=== PATIENT | female | born 1960 | race Caucasian/White ===

== ENCOUNTER 2016-11-07 06:49 | Inpatient (IN) | payer MEDICARE ==
[~2016-11-07] VITALS: Ht 170.2 cm; Wt 61.8 kg
[~2016-11-07 06:49] MED LIST: LORA2TAB99 PO; OXYC1TAB9 PO; ZOLP10TA PO
[2016-11-07] MEDS ORDERED: SODIUM CHLORIDE FLUSH 10ML SYR IVF ONE (07:00)
[2016-11-07] MEDS ORDERED: MELO-190 PO (07:27)
[2016-11-07] MEDS ORDERED: ESTR0.6246 PO (07:27)
[2016-11-07] MEDS ORDERED: PLEASE ENTER ALLERGIES MC SCH ×2 (07:30)
[2016-11-07] MEDS ORDERED: PANTOPRAZOLE 40 MG IV IVPush ONE (07:30)
[2016-11-07] MEDS ORDERED: PANTOPRAZOLE 40 MG IV ONE (07:32)
[2016-11-07 07:37] LABS: ABG COLLECTION SITE RIGHT BRACHIAL
[2016-11-07 07:47] LABS: ASPARTATE AMINO TRANSFERASE 15 U/L (15-37); BLOOD UREA NITROGEN 13 mg/dL (7-18)
[2016-11-07 07:51] LABS: ACETAMINOPHEN < 2 mcg/mL (10-30)
[2016-11-07 08:05] LABS: HEMOGLOBIN 15.4 g/dL (11.7-16.4)
[2016-11-07 08:33] LABS: DAU SCREEN DISCLAIMER
[2016-11-07] MEDS ORDERED: ONDANSETRON 2MG/ML, 2ML IVPush ONE (09:30)
[2016-11-07 10:29] VITALS: BP 163/83
[2016-11-07] MEDS ORDERED: LORazepam 2 MG/ML, 1ML IVPush PRN (11:00)
[2016-11-07] MEDS ORDERED: OXYcodone/APAP 5/325MG TABLET PO PRN (11:00)
[2016-11-07] MEDS ORDERED: HYDROmorphone 2 MG/ML, 1ML IV PRN (11:00)
[2016-11-07] MEDS ORDERED: PROMETHAZINE 25 MG/ML, 1ML IM PRN (11:00)
[2016-11-07] MEDS ORDERED: NICOTINE 21 MG/24 HR PATCH.TD24 TD SCH (11:00)
[2016-11-07] MEDS: POTASSIUM CHLORIDE 10 MEQ in SODIUM CHLORIDE 0.9% 1,000 ML IV SCH ×2 (11:48→23:18)
[2016-11-07 14:01] LABS: HEMOGLOBIN 14.4 g/dL (11.7-16.4)
[2016-11-07 14:50] VITALS: BP 147/88
[2016-11-07 19:48] VITALS: BP 139/82
[2016-11-07] MEDS: PANTOPRAZOLE 40 MG IV IVP SCH (20:08)
[2016-11-07] MEDS: ONDANSETRON 2MG/ML, 2ML IVP PRN (20:08)
[2016-11-08 03:31] VITALS: BP 167/93
[2016-11-08 05:49] LABS: HEMOGLOBIN 14.2 g/dL (11.7-16.4)
[2016-11-08 06:09] LABS: BLOOD UREA NITROGEN 7 mg/dL (7-18)
[2016-11-08] MEDS: ONDANSETRON 2MG/ML, 2ML IVP PRN (06:32)
[2016-11-08 06:48] VITALS: BP 162/97
[2016-11-08] MEDS: PANTOPRAZOLE 40 MG IV IVP SCH (08:41)
[2016-11-08] MEDS ORDERED: POTASSIUM CHLORIDE 20 MEQ TAB.ER.PRT PO ONE (09:00)
[2016-11-08] MEDS ORDERED: PNEUMOCOCCAL 23 VACCINE IM-VACC ONE (09:00)
== END 2016-11-08 10:25 | disposition home or self-care (01) | DRG 917 ==
LOC: ED 08:14 → EDIP 09:25 → 4WST 10:22
PROVIDERS: ADMIT Internal Medicine; ATTEND Internal Medicine
PROC: 0T9B70Z Drainage of Bladder with Drainage Device, Via Natural or Artificial Opening (ICD-10-PCS; principal; 2016-11-07)
DX: T40.2X1A Poisoning by other opioids, accidental (unintentional), initial encounter (principal); G92 Toxic encephalopathy; M79.7 Fibromyalgia; F43.10 Post-traumatic stress disorder, unspecified; Z62.810 Personal history of physical and sexual abuse in childhood; F17.210 Nicotine dependence, cigarettes, uncomplicated; Z88.5 Allergy status to narcotic agent
CPT/HCPCS: 36415; 36600; 70450; 71010; 80048; 80053; 80307; 80329; 81003; 82140; 82803; 83605; 85014; 85018; 85025; 85610; 85730; 90732; 93005; 96374; 96375; J2405; J3480; C9113; G0480; J2060; J7030

== ENCOUNTER 2017-03-27 16:42 | Emergency (ER) | payer MEDICARE, MEDICAID ==
[~2017-03-27] VITALS: Ht 167.6 cm; Wt 63.2 kg
[~2017-03-27 16:42] MED LIST changes: +ESTR0.6246 PO; +MELO7.5T31 PO
[2017-03-27] MEDS ORDERED: INDOMETHACIN 50 MG CAPSULE ONE (17:43)
[2017-03-27 17:47] VITALS: BP 137/89
[2017-03-27] MEDS ORDERED: INDOMETHACIN 50 MG CAPSULE PO ONE (18:00)
== END 2017-03-27 18:39 | disposition home or self-care (01) ==
LOC: ED 18:30
DX: M79.89 Other specified soft tissue disorders (principal); M25.531 Pain in right wrist; F17.200 Nicotine dependence, unspecified, uncomplicated; F43.10 Post-traumatic stress disorder, unspecified; M79.7 Fibromyalgia; L40.9 Psoriasis, unspecified; X58.XXXA Exposure to other specified factors, initial encounter; Y93.89 Activity, other specified; Y92.098 Other place in other non-institutional residence as the place of occurrence of the external cause; Y99.8 Other external cause status
CPT/HCPCS: 99284

== ENCOUNTER 2017-05-22 16:43 | Emergency (ER) | payer MEDICARE, MEDICAID ==
[~2017-05-22] VITALS: Ht 170.2 cm; Wt 64.0 kg
[2017-05-22 16:47] VITALS: BP 140/96
[2017-05-23] MEDS ORDERED: ALPR1TAB2 PO (18:32)
== END 2017-05-22 19:52 | disposition home or self-care (01) ==
LOC: ED 17:31
DX: S32.512A Fracture of superior rim of left pubis, initial encounter for closed fracture (principal); F43.10 Post-traumatic stress disorder, unspecified; Z90.710 Acquired absence of both cervix and uterus; W18.39XA Other fall on same level, initial encounter; Y93.89 Activity, other specified; Y92.098 Other place in other non-institutional residence as the place of occurrence of the external cause; Y99.8 Other external cause status
CPT/HCPCS: 99284

== ENCOUNTER 2017-05-23 17:36 | Inpatient (IN) | payer MEDICARE, MEDICAID ==
[~2017-05-23] VITALS: Ht 167.6 cm; Wt 62.7 kg
[2017-05-23] MEDS ORDERED: KETOROLAC 30 MG/1 ML ONE (17:56)
[2017-05-23] MEDS ORDERED: SODIUM CHLORIDE 0.9% 1,000ML IVBOLUS ONE (18:00)
[2017-05-23 18:10] LABS: HEMATOCRIT 37.9 % (34.6-47.8); HEMOGLOBIN 12.6 g/dL (11.7-16.4); WHITE BLOOD COUNT 8.3 x10^3/uL (3.4-10)
[2017-05-23] MEDS ORDERED: KETOROLAC 30 MG/1 ML IVPush ONE (18:30)
[2017-05-23] MEDS ORDERED: ALPR1TAB2 PO (18:32)
[2017-05-23 18:51] LABS: ASPARTATE AMINO TRANSFERASE 21 U/L (15-37); BLOOD UREA NITROGEN 12 mg/dL (7-18)
[2017-05-23 18:54] LABS: ACETAMINOPHEN < 2 mcg/mL (10-30)
[2017-05-23] MEDS ORDERED: ONDANSETRON 2MG/ML, 2ML IVPush PRN (19:30)
[2017-05-23] MEDS ORDERED: HALOPERIDOL 5 MG/ML IVPush PRN (19:30)
[2017-05-23] MEDS ORDERED: hydrALAzine 20 MG/ML, 1ML IVPush PRN (19:30)
[2017-05-23] MEDS ORDERED: ENOXAPARIN 40 MG/0.4 ML ONE (19:44)
[2017-05-23] MEDS: ENOXAPARIN 40 MG/0.4 ML SQ SCH (19:55)
[2017-05-23 20:41] VITALS: BP 130/77
[2017-05-23] MEDS: SODIUM CHLORIDE 0.9% 1,000 ML IV SCH (21:22)
[2017-05-24 01:23] VITALS: BP 128/76
[2017-05-24 05:59] LABS: HEMATOCRIT 34.7 % (34.6-47.8); HEMOGLOBIN 11.9 g/dL (11.7-16.4); WHITE BLOOD COUNT 6.4 x10^3/uL (3.4-10)
[2017-05-24 06:08] LABS: BLOOD UREA NITROGEN 9 mg/dL (7-18)
[2017-05-24] MEDS: SODIUM CHLORIDE 0.9% 1,000 ML IV SCH ×3 (06:33→19:38)
[2017-05-24 08:04] VITALS: BP 119/70
[2017-05-24] MEDS: PANTOPRAZOLE 40 MG IV IVPush SCH (09:25)
[2017-05-24] MEDS ORDERED: HYDROmorphone 1 MG/ML, 1ML ONE ×2 (09:41→20:11)
[2017-05-24] MEDS: HYDROmorphone 2 MG/ML, 1ML IVPush PRN ×2 (09:44→20:14)
[2017-05-24 09:54] LABS: DAU SCREEN DISCLAIMER
[2017-05-24 13:58] VITALS: BP 99/56
[2017-05-24 19:07] VITALS: BP 123/79
[2017-05-24] MEDS: ENOXAPARIN 40 MG/0.4 ML SQ SCH (19:43)
[2017-05-25 01:56] VITALS: BP 144/92
[2017-05-25] MEDS: SODIUM CHLORIDE 0.9% 1,000 ML IV SCH ×3 (01:57→19:10)
[2017-05-25 05:45] LABS: BLOOD UREA NITROGEN 8 mg/dL (7-18)
[2017-05-25 07:58] VITALS: BP 144/88
[2017-05-25] MEDS ORDERED: LORazepam 2 MG/ML, 1ML IVPush ONE (08:00)
[2017-05-25] MEDS ORDERED: FENTANYL PF 100 MCG/2ML IVPush PRN (08:30)
[2017-05-25] MEDS ORDERED: LORazepam 2 MG/ML, 1ML IVPush PRN (08:30)
[2017-05-25] MEDS: ZIPRASIDONE 20 MG INJ IM PRN (11:12)
[2017-05-25] MEDS: PANTOPRAZOLE 40 MG IV IVPush SCH (11:41)
[2017-05-25 13:19] VITALS: BP 142/87
[2017-05-25] MEDS: ENOXAPARIN 40 MG/0.4 ML SQ SCH (19:48)
[2017-05-25 20:47] VITALS: BP 130/76
[2017-05-25] MEDS: LORazepam 2 MG/ML, 1ML IVPush SCH (21:32)
[2017-05-26] MEDS: ZIPRASIDONE 20 MG INJ IM PRN (00:50)
[2017-05-26 02:55] VITALS: BP 141/88
[2017-05-26] MEDS: SODIUM CHLORIDE 0.9% 1,000 ML IV SCH ×4 (03:53→21:32)
[2017-05-26 08:07] VITALS: BP 150/90
[2017-05-26] MEDS: PANTOPRAZOLE 40 MG IV IVPush SCH (08:27)
[2017-05-26] MEDS: LORazepam 2 MG/ML, 1ML IVPush SCH (09:00)
[2017-05-26] MEDS: LORazepam 1MG TABLET PO SCH ×2 (11:18→21:30)
[2017-05-26] MEDS: QUETIAPINE 25MG TABLET PO SCH ×2 (12:21→21:30)
[2017-05-26 13:36] VITALS: BP 114/75
[2017-05-26 19:10] VITALS: BP 123/74
[2017-05-26] MEDS: ENOXAPARIN 40 MG/0.4 ML SQ SCH (19:53)
[2017-05-26] MEDS: HYDROcodone/APAP 5/325 TABLET PO PRN (19:53)
[2017-05-26] MEDS ORDERED: LORazepam 1MG TABLET PO SCH (21:00)
[2017-05-27 00:43] VITALS: BP 127/84
[2017-05-27] MEDS: HYDROcodone/APAP 5/325 TABLET PO PRN ×3 (00:57→13:19)
[2017-05-27] MEDS: SODIUM CHLORIDE 0.9% 1,000 ML IV SCH ×2 (04:15→09:00)
[2017-05-27 08:45] VITALS: BP 125/83
[2017-05-27] MEDS: LORazepam 1MG TABLET PO SCH (08:55)
[2017-05-27] MEDS: QUETIAPINE 25MG TABLET PO SCH (08:55)
[2017-05-27] MEDS: PANTOPRAZOLE 40 MG IV IVPush SCH (08:55)
[2017-05-27] MEDS ORDERED: LORA-446 PO (09:29)
[2017-05-27] MEDS ORDERED: QUET25TA PO (09:29)
[2017-05-27] MEDS ORDERED: HYDR-3240 PO (09:29)
[2017-05-27 14:30] VITALS: BP 144/89
== END 2017-05-27 16:21 | DRG 896 ==
LOC: ED 17:58 → EDIP 19:06 → 3NE 20:00
PROVIDERS: ADMIT Hospitalist; ATTEND Hospitalist
PROC: 0T9B70Z Drainage of Bladder with Drainage Device, Via Natural or Artificial Opening (ICD-10-PCS; principal; 2017-05-24)
DX: F13.239 Sedative, hypnotic or anxiolytic dependence with withdrawal, unspecified (principal); G93.41 Metabolic encephalopathy; E44.0 Moderate protein-calorie malnutrition; K50.90 Crohn's disease, unspecified, without complications; E87.1 Hypo-osmolality and hyponatremia; F39 Unspecified mood [affective] disorder; Z78.1 Physical restraint status; M79.7 Fibromyalgia; K59.00 Constipation, unspecified; F43.10 Post-traumatic stress disorder, unspecified; F17.200 Nicotine dependence, unspecified, uncomplicated; E86.0 Dehydration; G89.29 Other chronic pain; Z85.850 Personal history of malignant neoplasm of thyroid; Z91.81 History of falling; Z87.81 Personal history of (healed) traumatic fracture; Z79.899 Other long term (current) drug therapy; Z79.1 Long term (current) use of non-steroidal anti-inflammatories (NSAID); Z88.5 Allergy status to narcotic agent; Z68.22 Body mass index [BMI] 22.0-22.9, adult
CPT/HCPCS: 36415; 70450; 71010; 74000; 80048; 80053; 80307; 80329; 81003; 82140; 82607; 83735; 84443; 85025; 93005; 96360; 96372; J1170; J1650; J1885; J3010; J3486; C9113; G0479; G0480; J2060; J7030

== ENCOUNTER 2018-08-21 15:58 | Emergency (ER) | payer MEDICARE, MEDICAID ==
[~2018-08-21] VITALS: Ht 167.6 cm; Wt 62.0 kg
[~2018-08-21 15:58] MED LIST changes: +ALPR-475 PO; +ALPR1TAB2 PO; +AMIT10TA PO; +AMIT50TA PO; +BETA15CR5 TP; +DULO20CA17 PO; +DULO30CA2 PO; +HYDR-3240 PO; +LORA-446 PO; +NICO-486 TD; +OMEP40CA6 PO; +OXYC-432 PO; -OXYC1TAB9 PO; +QUET25TA PO
[2018-08-21 16:29] VITALS: BP 120/81
[2018-08-21] MEDS ORDERED: HYDROcodone/APAP 5/325 TABLET PO ONE (17:00)
--- NOTE | 2018-08-21 17:29 | NUR ---
Patient/Caregiver given discharge instructions and they have confirmed that they understand the instructions. Patient ambulatory with steady gait. PT LEFT WITH ALL PERSONAL BELONGINGS.
== END 2018-08-21 17:31 | disposition home or self-care (01) ==
LOC: ED 16:45
DX: S20.02XA Contusion of left breast, initial encounter (principal); F43.10 Post-traumatic stress disorder, unspecified; Z90.710 Acquired absence of both cervix and uterus; Z85.850 Personal history of malignant neoplasm of thyroid; W01.0XXA Fall on same level from slipping, tripping and stumbling without subsequent striking against object, initial encounter; Y93.89 Activity, other specified; Y92.009 Unspecified place in unspecified non-institutional (private) residence as the place of occurrence of the external cause; Y99.8 Other external cause status
CPT/HCPCS: 99283

== ENCOUNTER → 2020-04-21 | Outpatient (CLI) | payer MEDICAID, MEDICARE ==
[~2020-04-21] MED LIST changes: -ALPR-475 PO; +ALPR0.5T7 PO; -DULO20CA17 PO; +DULO20CA18 PO; +OMEP40CA42 PO; -OMEP40CA6 PO; -OXYC-432 PO; +OXYC1TAB18 PO; -QUET25TA PO; +QUET25TA7 PO
[2020-04-21 12:49] LABS: ALANINE AMINOTRANSFERASE 16 U/L (12-78); ALBUMIN 3.6 g/dL (3.4-5.0); ALKALINE PHOSPHATASE 53 U/L (45-117); BASOPHILS # (AUTO) 0.06 x10^3/uL (0-0.1); BASOPHILS % (AUTO) 1 % (0-1); BILIRUBIN,TOTAL 0.3 mg/dL (0.2-1.0); CALCIUM 9.6 mg/dL (8.5-10.1); CHLORIDE 110 mmol/L (98-107); CHOL/HDL RATIO 3.9; CHOLESTEROL, TOTAL 302 mg/dL (140-239); CREATININE 1.31 mg/dL (0.55-1.02); EOSINOPHILS # (AUTO) 0.17 x10^3/uL (0-0.4); EOSINOPHILS % (AUTO) 1 % (1-7); HDL CHOL % 26 % (28-40); HDL CHOLESTEROL (DIRECT) 78 mg/dL (40-60); LDL CHOLESTEROL,CALCULATED 184 mg/dL (54-169); LDL/HDL RATIO 2.4 (0.5-3.0); LYMPHOCYTES # (AUTO) 3.18 x10^3/uL (1-3.4); LYMPHOCYTES % (AUTO) 27 % (22-44); MD NO; MEAN CORPUSCULAR HEMOGLOBIN 28.9 pg (27.0-34.8); MEAN CORPUSCULAR HGB CONC 32.2 g/dL (32.4-35.8); MEAN CORPUSCULAR VOLUME 89.7 fL (80-100); MONOCYTES # (AUTO) 0.76 x10^3/uL (0.2-0.8); MONOCYTES % (AUTO) 7 % (2-9); NEUTROPHILS # (AUTO) 7.49 x10^3/uL (1.8-6.8); NEUTROPHILS % (AUTO) 64 % (42-75); PLATELET COUNT 478 x10^3/uL (130-400); RED CELL DISTRIBUTION WIDTH 20.2 % (9.6-15.2); TOTAL PROTEIN 7.3 g/dL (6.4-8.2); TRIGLYCERIDES 200 mg/dL (50-200); VLDL CHOLESTEROL 40 mg/dL (0-25)
[2020-04-21 12:55] LABS: ANION GAP 10 mmol/L (5-15)
== END | disposition home or self-care (01) ==
LOC: CFH 11:23
PROVIDERS: ATTEND Family Medicine
DX: Z00.01 Encounter for general adult medical examination with abnormal findings (principal); E78.2 Mixed hyperlipidemia; M81.0 Age-related osteoporosis without current pathological fracture
CPT/HCPCS: 36415; 80053; 80061; 84443; 85025

== ENCOUNTER → 2020-09-12 | Outpatient (CLI) | payer MEDICARE, MEDICAID ==
[~2020-09-12] MED LIST changes: +HYDR-1067 PO; -HYDR-3240 PO
== END | disposition home or self-care (01) ==
LOC: CFH 10:09
PROVIDERS: ATTEND Family Medicine
DX: Z12.2 Encounter for screening for malignant neoplasm of respiratory organs (principal); F17.210 Nicotine dependence, cigarettes, uncomplicated; J84.10 Pulmonary fibrosis, unspecified
CPT/HCPCS: 71271